=== PATIENT | female | born 1960 | race African-American/Black ===

== ENCOUNTER 2017-02-03 17:10 | Emergency (ER) | payer SELFPAY ==
[2017-02-03] MEDS ORDERED: Ibuprofen 200 MG TAB ONE (17:55)
--- NOTE | 2017-02-03 17:55 | RAD ---
RIGHT KNEE FOUR VIEWS: 02/03/17 HISTORY: Knee pain. There are arthritic changes of the knee with tricompartment degenerative changes. There is a joint ef fusion noted. I do not see any signs of acute process. IMPRESSION: Marked arthritic changes of the knee. POS: [facility]
== END 2017-02-03 18:06 | disposition home or self-care (01) ==
LOC: BURERS 17:10
DX: M25.561 Pain in right knee (principal); I10 Essential (primary) hypertension; F17.210 Nicotine dependence, cigarettes, uncomplicated